=== PATIENT | male | born 1945 | race Caucasian/White ===

== ENCOUNTER 2018-08-06 10:14 | Inpatient (IN) | payer MEDICARE, BC ==
[~2018-08-06] VITALS: Ht 182.9 cm; Wt 113.4 kg
--- NOTE | ~2018-08-06 | MORECARE ---
CASE MANAGEMENT DISCHARGE SUMMARY PATIENT: LAUREN MONTERROSO UNIT: [id number] ADM DATE: 08/06/18 AGE: 72 : 46 SEX: M ROOM/BED: D.2225 AUTHOR: JODI,DOC PHYSICIAN: REFERRING PHYSICIAN: TARYN DORADO MD DATE OF SERVICE: 08/08/18 Discharge Plan Patient Name: LAUREN MONTERROSO Facility: [facility]:[place] : 1945 Planned Disposition: Home Anticipated Discharge Date: 08/08/18 Discharge Date: Expected LOS: 2 Initial Reviewer: [email or web address] Initial Review Date: 08/08/2018 Generated: 08/08/18 4:19 pm Comments DCP- Discharge Planning Updated by [email or web address]: Keke Schafer on 08/08/18 1:[address] Patient Name: LAUREN MONTERROSO Admission Status: ER Accout number: [id number] Admission Date: 08-06-2018 : 1945 Admission Diagnosis: Attending: TARYN DORADO Current LOS: 2 Anticipated DC Date: 08-08-2018 Planned Disposition: Home Primary Insurance: MEDICARE A & B Discharge Planning Comments: CM met with patient and his son to discuss discharge planning. He states he lives with his . States he is independent with all ADL's and IADL's. States he does use a cane for ambulation. He doesn't drive much any more, but his or son drives him where he needs to go. States he wears oxygen at night. States he checks his blood sugar daily. I discussed the availability of rehab, SNF and home health and he states he would like to go home with outpatient occupational therapy for his hand. He chooses [facility] for therapy. I spoke with Efren in PT and she will call him with appointment date and time. Order and facesheet faxed to PT department at [phone]. Beveling Machine Operator: Keke Schafer DCPIA - Discharge Planning Initial Assessment Updated by [email or web address]: Keke Schafer on 08/08/18 2:42 pm * Is the patient Alert and Oriented? Yes * How many steps to enter\exit or inside your home? 5/0 * PCP Dr. Karen * Pharmacy [facility] on [facility] and [place] * Preadmission Environment Home with Family * ADLs Partial Dependent * Partial ADLs (Assistance needed) Ambulation * Equipment Cane Glucometer Oxygen * List name and contact numbers for known caregivers / representatives who currently or will assist patient after discharge: Parish allen - [phone] Ghazala DAVIS - [phone] Selina - [email or web address] - [phone] * Verbal permission to speak to the caregivers and representatives has been obtained from the patient. Yes * Community resources currently utilized None * Please name any agencies selected above. DME company for oxygen is [employer] * Additional services required to return to the preadmission environment? Yes * Can the patient safely return to the preadmission environment? Yes * Has this patient been hospitalized within the prior 30 days at any hospital? No External Providers External Provider: [facility] Outpt PT Next Contact Date: Service Request Date: Service Type: Resolution: Reviewer: Comments: Last DP export: 08/08/18 1:51 p Patient Name: LAUREN MONTERROSO Page 18922 at 1519 All edits/amendments must be made on the electronic document DICTATION DATE: 08/08/181518 CORNCOB PIPES ASSEMBLER: COLEMAN 08/08/181518 RPT#: [id number] DC DATE: STATUS: ADM IN [facility] [address] [place] [address] END OF REPORT
--- NOTE | ~2018-08-06 | MORECARE ---
CASE MANAGEMENT DISCHARGE SUMMARY PATIENT: LAUREN MONTERROSO UNIT: [id number] ADM DATE: 08/06/18 AGE: 72 : 46 SEX: M ROOM/BED: D.2225 AUTHOR: JODIDOC PHYSICIAN: REFERRING PHYSICIAN: TARYN DORADO MD DATE OF SERVICE: 08/09/18 Discharge Plan Patient Name: LAUREN MONTERROSO Facility: [facility]:[place] : 1945 Planned Disposition: Home Anticipated Discharge Date: 08/08/18 Discharge Date: 08/08/2018 Expected LOS: 2 Initial Reviewer: [email or web address] Initial Review Date: 08/08/2018 Generated: 08/09/18 7:38 am Comments DCP- Discharge Planning Updated by [email or web address]: Keke Schafer on 08/08/18 3:[address] Patient Name: LAUREN MONTERROSO Encounter No: [id number] : 1945 Primary Insurance: MEDICARE A & B Anticipated DC Date: 08-08-2018 Planned Disposition: Home External Planned Provider: : DCP follow-up note: Patient and family in agreement with discharge plan. No changes to plan. Case management will follow and assist as needed. Keke Schafer DCP- Discharge Planning Updated by [email or web address]: Keke Schafer on 08/08/18 1:[address] Patient Name: LAUREN MONTERROSO Admission Status: ER Accout number: [id number] Admission Date: 08-06-2018 : 1945 Admission Diagnosis: Attending: TARYN DORADO Current LOS: 2 Anticipated DC Date: 08-08-2018 Planned Disposition: Home Primary Insurance: MEDICARE A & B Discharge Planning Comments: CM met with patient and his son to discuss discharge planning. He states he lives with his . States he is independent with all ADL's and IADL's. States he does use a cane for ambulation. He doesn't drive much any more, but his or son drives him where he needs to go. States he wears oxygen at night. States he checks his blood sugar daily. I discussed the availability of rehab, SNF and home health and he states he would like to go home with outpatient occupational therapy for his hand. He chooses [facility] for therapy. I spoke with Efren in PT and she will call him with appointment date and time. Order and facesheet faxed to PT department at [phone]. Aviation Electrical Technician: Keke Gilmar DCPIA - Discharge Planning Initial Assessment Updated by [email or web address]: Keke Gilmar on 08/08/18 2:42 pm * Is the patient Alert and Oriented? Yes * How many steps to enter\exit or inside your home? 5/0 * PCP Dr. Jones * Pharmacy [facility] on [facility] and [place] * Preadmission Environment Home with Family * ADLs Partial Dependent * Partial ADLs (Assistance needed) Ambulation * Equipment Cane Glucometer Oxygen * List name and contact numbers for known caregivers / representatives who currently or will assist patient after discharge: Parish allen - [phone] Ghazala DAVIS - [phone] Selina [facility] - [phone] * Verbal permission to speak to the caregivers and representatives has been obtained from the patient. Yes * Community resources currently utilized None * Please name any agencies selected above. DME company for oxygen is [employer] * Additional services required to return to the preadmission environment? Yes * Can the patient safely return to the preadmission environment? Yes * Has this patient been hospitalized within the prior 30 days at any hospital? No Last DP export: 08/08/18 3:41 p Patient Name: LAUREN MONTERROSO Page 46126 at 0638 All edits/amendments must be made on the electronic document DICTATION DATE: 08/09/18636 SUPERVISOR PHOSPHATIC FERTILIZER: COLEMAN 08/09/18636 RPT#: [id number] DC DATE:08/08/18 STATUS: DIS IN [facility] [address] [facility] [place] [address] END OF REPORT
--- NOTE | ~2018-08-06 | EC ---
PATIENT:LAUREN MONTERROSO DATE OF SERVICE: 08/06/18 SEX: M MEDICAL RECORD: [id number] DATE OF : [birth year] LOCATION:D.MS [facility] AGE OF PATIENT: 72 ADMISSION DATE: 08/06/18 REFERRING PHYSICIAN: INTERPRETING PHYSICIAN: DHRUV MATA MD ECHOCARDIOGRAM REPORT ECHO CHARGES 4 ECHO COMPLETE Date: 08/07/18 CLINICAL DIAGNOSIS: CVA ECHOCARDIOGRAPHIC MEASUREMENTS (adult normal given) AC root (d.<3.7cm) 3.3 cm LV Septum d (<1.2 cm> 1.4 cm Valve Excursion 1.6 cm LV Septum (systole) 1.5 cm Left Atria (s.<4.0cm> 3.9 cm LVPW d(<1.2cm) 1.5 cm RV (d.<2.3cm) 3.9 cm LVPW (sytole) 1.8 cm LV diastole(<5.6CM) 4.7 cm MV E-F(>70mm/sec) cm LV systole 3.5 cm LVOT Diameter 2.3 cm MV exc.(>10mm) cm Est.ejection fraction (50-75%) % DOPPLER: LVIT cm/sec A 100 cm/sec E 50.0 cm/sec LA cm/sec RVSP 19 mmHg LVOT 110 cm/sec AOP1/2T m/s Asc. Ao 135 cm/sec RVOT cm/sec RA cm/sec PA cm/sec AV Gradient Peak 7.32 mmHg AV Mean 4.2 mmHg AV Area 3.5 cm MV Gradient Peak 9.77 mmHg MV Mean 2.82 mmHg MV Area cm COMMENTS: Stem Cleaning Machine Feeder: Windy STEINBERG Drapery Maker: 1 Dr. Mata TAPE# PACS Pericardial Effusion N DATE OF SERVICE: 08/07/2018 PROCEDURE: Echocardiogram. FINDINGS: 1. Left ventricle chamber size is within normal limits. Left ventricular systolic function is normal. Overall ejection fraction estimated at 60%. 2. Left atrium, right atrium, and right ventricle chamber sizes are within normal limits. 3. Valvular structures have normal structure and motion. ECHOCARDIOGRAM REPORT [id number] LAUREN MONTERROSO 4. Doppler interrogation reveals no significant valvular insufficiency or stenosis. Pulmonary systolic pressure is normal estimated at 19 mmHg. 5. No evidence of pericardial effusion or left ventricular thrombus. TRANSINT:[id number] Voice Confirmation ID: [id number] DOCUMENT ID: [id number] DHRUV MATA MD at 1059 CC: [id number] DICTATION DATE: 08/07/18 1242 CHEMICAL SALES REPRESENTATIVE: 08/07/18 1247 DIS IN 08/08/18 [place] [id number] [place] [id number]
--- NOTE | ~2018-08-06 | MORECARE ---
CASE MANAGEMENT DISCHARGE SUMMARY PATIENT: LAUREN MONTERROSO UNIT: [id number] ADM DATE: 08/06/18 AGE: 72 : 46 SEX: M ROOM/BED: D.2225 AUTHOR: JODI,DOC PHYSICIAN: REFERRING PHYSICIAN: TARYN DORADO MD DATE OF SERVICE: 08/08/18 Discharge Plan Patient Name: LAUREN MONTERROSO Facility: [facility]:[place] : 1945 Planned Disposition: Home Anticipated Discharge Date: 08/08/18 Discharge Date: Expected LOS: 2 Initial Reviewer: [email or web address] Initial Review Date: 08/08/2018 Generated: 08/08/18 5:41 pm Comments DCP- Discharge Planning Updated by [email or web address]: Keke Mujicamarlene on 08/08/18 3:[address] Patient Name: LAUREN MONTERROSO Encounter No: [id number] : 1945 Primary Insurance: MEDICARE A & B Anticipated DC Date: 08-08-2018 Planned Disposition: Home External Planned Provider: : DCP follow-up note: Patient and family in agreement with discharge plan. No changes to plan. Case management will follow and assist as needed. Keke Schafer DCP- Discharge Planning Updated by [email or web address]: Keke Schafer on 08/08/18 1:[address] Patient Name: LAUREN MONTERROSO Admission Status: ER Accout number: [id number] Admission Date: 08-06-2018 : 1945 Admission Diagnosis: Attending: TARYN DORADO Current LOS: 2 Anticipated DC Date: 08-08-2018 Planned Disposition: Home Primary Insurance: MEDICARE A & B Discharge Planning Comments: CM met with patient and his son to discuss discharge planning. He states he lives with his . States he is independent with all ADL's and IADL's. States he does use a cane for ambulation. He doesn't drive much any more, but his or son drives him where he needs to go. States he wears oxygen at night. States he checks his blood sugar daily. I discussed the availability of rehab, SNF and home health and he states he would like to go home with outpatient occupational therapy for his hand. He chooses [facility] for therapy. I spoke with Efren in PT and she will call him with appointment date and time. Order and facesheet faxed to PT department at [phone]. Product Safety Consultant: Keke Mujicamarlene DCPIA - Discharge Planning Initial Assessment Updated by [email or web address]: Keke Mujicamarlene on 08/08/18 2:42 pm * Is the patient Alert and Oriented? Yes * How many steps to enter\exit or inside your home? 5/0 * PCP Dr. Jones * Pharmacy [facility] on [facility] and [place] * Preadmission Environment Home with Family * ADLs Partial Dependent * Partial ADLs (Assistance needed) Ambulation * Equipment Cane Glucometer Oxygen * List name and contact numbers for known caregivers / representatives who currently or will assist patient after discharge: Parish allen - [phone] Ghazala DAVIS - [phone] Selina - [facility] - [phone] * Verbal permission to speak to the caregivers and representatives has been obtained from the patient. Yes * Community resources currently utilized None * Please name any agencies selected above. DME company for oxygen is [employer] * Additional services required to return to the preadmission environment? Yes * Can the patient safely return to the preadmission environment? Yes * Has this patient been hospitalized within the prior 30 days at any hospital? No Last DP export: 08/08/18 2:19 p Patient Name: LAUREN MONTERROSO Page 04689 at 1641 All edits/amendments must be made on the electronic document DICTATION DATE: 08/08/181640 SOAP CHIPPER: COLEMAN 08/08/181640 RPT#: [id number] DC DATE: STATUS: ADM IN [facility] [address] [place] [address] END OF REPORT
--- NOTE | ~2018-08-06 | MORECARE ---
CASE MANAGEMENT DISCHARGE SUMMARY PATIENT: LAUREN MONTERROSO UNIT: [id number] ADM DATE: 08/06/18 AGE: 72 : 46 SEX: M ROOM/BED: D.2225 AUTHOR: JODI,DOC PHYSICIAN: REFERRING PHYSICIAN: TARYN DORADO MD DATE OF SERVICE: 08/08/18 Discharge Plan Patient Name: LAUREN MONTERROSO Facility: [facility]:[place] : 1945 Planned Disposition: Home Anticipated Discharge Date: 08/08/18 Discharge Date: Expected LOS: 2 Initial Reviewer: [email or web address] Initial Review Date: 08/08/2018 Generated: 08/08/18 3:51 pm Comments DCP- Discharge Planning Updated by [email or web address]: Keke Schafer on 08/08/18 1:[address] Patient Name: LAUREN MONTERROSO Admission Status: ER Accout number: [id number] Admission Date: 08-06-2018 : 1945 Admission Diagnosis: Attending: TARYN DORADO Current LOS: 2 Anticipated DC Date: 08-08-2018 Planned Disposition: Home Primary Insurance: MEDICARE A & B Discharge Planning Comments: CM met with patient and his son to discuss discharge planning. He states he lives with his . States he is independent with all ADL's and IADL's. States he does use a cane for ambulation. He doesn't drive much any more, but his or son drives him where he needs to go. States he wears oxygen at night. States he checks his blood sugar daily. I discussed the availability of rehab, SNF and home health and he states he would like to go home with outpatient occupational therapy for his hand. He chooses [facility] for therapy. I spoke with Efren in PT and she will call him with appointment date and time. Order and facesheet faxed to PT department at [phone]. Dairy Scientist: Keke Schafer DCPIA - Discharge Planning Initial Assessment Updated by [email or web address]: Keke Schafer on 08/08/18 2:42 pm * Is the patient Alert and Oriented? Yes * How many steps to enter\exit or inside your home? 5/0 * PCP Dr. Karen * Pharmacy [facility] on [facility] and [place] * Preadmission Environment Home with Family * ADLs Partial Dependent * Partial ADLs (Assistance needed) Ambulation * Equipment Cane Glucometer Oxygen * List name and contact numbers for known caregivers / representatives who currently or will assist patient after discharge: Parish allen - [phone] Ghazala DAVIS - [phone] Selina - [email or web address] - [phone] * Verbal permission to speak to the caregivers and representatives has been obtained from the patient. Yes * Community resources currently utilized None * Please name any agencies selected above. DME company for oxygen is [employer] * Additional services required to return to the preadmission environment? Yes * Can the patient safely return to the preadmission environment? Yes * Has this patient been hospitalized within the prior 30 days at any hospital? No Last DP export: 08/08/18 1:42 p Patient Name: LAUREN MONTERROSO Page 80051 at 1451 All edits/amendments must be made on the electronic document DICTATION DATE: 08/08/181450 PRECAST CONCRETE PRODUCTS INSTALLER: COLEMAN 08/08/18 145 RPT#: [id number] DC DATE: STATUS: ADM IN [facility] [address] [place] [address] END OF REPORT
--- NOTE | ~2018-08-06 | MORECARE ---
CASE MANAGEMENT DISCHARGE SUMMARY PATIENT: LAUREN MONTERROSO UNIT: [id number] ADM DATE: 08/06/18 AGE: 72 : 46 SEX: M ROOM/BED: D.2225 AUTHOR: MILAGROS ZAPATA PHYSICIAN: REFERRING PHYSICIAN: TARYN DORADO MD DATE OF SERVICE: 08/08/18 Discharge Plan Patient Name: LAUREN MONTERROSO Facility: [facility]:[place] : 1945 Planned Disposition: Home Anticipated Discharge Date: 08/08/18 Discharge Date: Expected LOS: 2 Initial Reviewer: [email or web address] Initial Review Date: 08/08/2018 Generated: 08/08/18 3:42 pm DCPIA - Discharge Planning Initial Assessment Updated by [email or web address]: Keke Schafer on 08/08/18 2:42 pm * Is the patient Alert and Oriented? Yes * How many steps to enter\exit or inside your home? 5/0 * PCP Dr. Jones * [facility] * Preadmission Environment Home with Family * ADLs Partial Dependent * Partial ADLs (Assistance needed) Ambulation * Equipment Cane Glucometer Oxygen * List name and contact numbers for known caregivers / representatives who currently or will assist patient after discharge: Parish allen - [phone] Ghazala DAVIS - [phone] Selina [facility] - [phone] * Verbal permission to speak to the caregivers and representatives has been obtained from the patient. Yes * Community resources currently utilized None * Please name any agencies selected above. DME company for oxygen is [employer] * Additional services required to return to the preadmission environment? Yes * Can the patient safely return to the preadmission environment? Yes * Has this patient been hospitalized within the prior 30 days at any hospital? No External Providers External Provider: OTHER-OTHER Next Contact Date: Service Request Date: Service Type: Resolution: Reviewer: Comments: Patient Name: LAUREN MONTERROSO Page 09881 at 1442 All edits/amendments must be made on the electronic document DICTATION DATE: 08/08/18 1442 MANAGER TRANSFUSION: COLEMAN 08/08/18 1442 RPT#: [id number] DC DATE: STATUS: ADM IN [facility] [address] [place] [address] END OF REPORT
[2018-08-06 10:53] LABS: BASOPHILS 0.5 % (0-2); EOSINOPHILS 5.8 % (0-7); HEMATOCRIT 44.6 % (42.0-54.0); HEMOGLOBIN 15.1 g/dL (13.5-17.5); IMMATURE GRANULOCYTES 0.1 % (0-5); LYMPHOCYTES 22.7 % (15-50); MCH 31.7 pg (26.0-34.0); MCHC 33.9 g/dL (31.0-37.0); MCV 93.7 fL (80.0-100.0); MEAN PLATELET VOLUME 10.5 fL (7.4-10.4); MONOCYTES 6.4 % (2-11); NEUTROPHILS 64.5 % (40-80); RBC 4.76 10x6/uL (4.20-6.10); RDW 13.6 % (11.5-14.5); WBC 8.8 10x3/uL (4.8-10.8)
[2018-08-06 10:54] LABS: PLATELET COUNT 232 10x3/uL (130-400)
[2018-08-06 10:59] LABS: INR 0.91 (0.85-1.17); PROTIME 11.8 SECONDS (11.6-15.0)
[2018-08-06 11:00] LABS: APTT 29.4 SECONDS (22.8-39.4)
[2018-08-06 11:09] LABS: ALBUMIN 3.5 g/dL (3.4-5.0); ALKALINE PHOSPHATASE 121 U/L (46-116); ALT (SGPT) 28 U/L (10-68); BILIRUBIN - TOTAL 0.44 mg/dL (0.2-1.3); CALC OSMOLALITY 290 mosm/kg (275-300); CALCIUM 9.2 mg/dL (8.5-10.1); CARBON DIOXIDE 26.9 mmol/L (21.0-32.0); CHLORIDE - SERUM 106 mmol/L (98-107); POTASSIUM - SERUM 4.4 mmol/L (3.5-5.1); PROTEIN - SERUM 7.3 g/dL (6.4-8.2); SODIUM 142 mmol/L (136-145); UREA NITROGEN 12 mg/dL (7-18); eGFR NON AFRICAN AMERICAN 78 mL/min (90-120)
[2018-08-06 11:11] LABS: GLUCOSE 243 mg/dL (74-106)
[2018-08-06 11:15] VITALS: BP 144/84
[2018-08-06 11:24] LABS: CKMB 1.3 U/L (0.0-3.6); CREATINE KINASE 54 UL (21-232); MAGNESIUM - SERUM 1.7 mg/dL (1.8-2.4); THYROID STIMULATING HORMONE 6.19 uIU/mL (0.36-3.74)
[2018-08-06 11:25] LABS: TROPONIN-I < 0.017 ng/mL (0.000-0.060)
[2018-08-06 12:15] VITALS: BP 136/64
[2018-08-06 13:15] VITALS: BP 157/78
[2018-08-06 14:15] VITALS: BP 140/61
[2018-08-06] MEDS ORDERED: LISINOPRIL5 MG PO (17:20)
[2018-08-06] MEDS ORDERED: NORVASC10 MG PO (17:21)
[2018-08-06] MEDS ORDERED: NAMENDA5 MG PO (17:21)
[2018-08-06] MEDS ORDERED: INDERAL 40 MG T40 MG PO (17:22)
[2018-08-06] MEDS ORDERED: GLUCOPHAGE1000 MG PO (17:23)
[2018-08-06] MEDS ORDERED: GLIPIZIDE10 MG PO (17:23)
[2018-08-06] MEDS ORDERED: FLOMAX0.4 MG PO (17:24)
[2018-08-06] MEDS ORDERED: NEURONTIN 300300 MG PO (17:24)
[2018-08-06] MEDS ORDERED: REMERON15 MG PO (17:25)
[2018-08-06] MEDS ORDERED: TRAZODONE HCL150 MG PO (17:25)
[2018-08-06] MEDS ORDERED: ZOCOR40 MG PO (17:26)
[2018-08-06 17:38] VITALS: BP 150/95; BMI 34.0
[2018-08-06] MEDS ORDERED: lantus SC (17:38)
[2018-08-06 20:00] VITALS: BP 144/74
[2018-08-07 06:26] LABS: BASOPHILS 0.3 % (0-2); EOSINOPHILS 5.5 % (0-7); HEMATOCRIT 41.1 % (42.0-54.0); HEMOGLOBIN 14.3 g/dL (13.5-17.5); IMMATURE GRANULOCYTES 0.2 % (0-5); LYMPHOCYTES 21.1 % (15-50); MCH 32.5 pg (26.0-34.0); MCHC 34.8 g/dL (31.0-37.0); MCV 93.4 fL (80.0-100.0); MEAN PLATELET VOLUME 10.8 fL (7.4-10.4); MONOCYTES 6.1 % (2-11); NEUTROPHILS 66.8 % (40-80); PLATELET COUNT 233 10x3/uL (130-400); RDW 13.8 % (11.5-14.5); WBC 8.6 10x3/uL (4.8-10.8)
[2018-08-07 06:57] LABS: ALBUMIN 3.4 g/dL (3.4-5.0); ALKALINE PHOSPHATASE 113 U/L (46-116); ALT (SGPT) 25 U/L (10-68); BILIRUBIN - TOTAL 0.61 mg/dL (0.2-1.3); CALC OSMOLALITY 284 mosm/kg (275-300); CALCIUM 8.7 mg/dL (8.5-10.1); CARBON DIOXIDE 26.8 mmol/L (21.0-32.0); CHLORIDE - SERUM 104 mmol/L (98-107); CHOL - HDL RATIO 4.2 ratio (2.3-4.9); CHOLESTEROL, TOTAL 155 mg/dL (0-200); CREATININE - SERUM 0.9 mg/dL (0.6-1.3); GLUCOSE 232 mg/dL (74-106); HDL CHOLESTEROL 37 mg/dL (32-96); LDL CHOLESTEROL 96 mg/dL (0-100); LDL-HDL RATIO 2.6 ratio (1.5-3.5); MAGNESIUM - SERUM 2.1 mg/dL (1.8-2.4); POTASSIUM - SERUM 4.4 mmol/L (3.5-5.1); PROTEIN - SERUM 6.5 g/dL (6.4-8.2); SODIUM 140 mmol/L (136-145); TRIGLYCERIDE 110 mg/dL (30-200); UREA NITROGEN 10 mg/dL (7-18); eGFR NON AFRICAN AMERICAN 88 mL/min (90-120)
[2018-08-07 08:19] VITALS: BP 154/75
[2018-08-07 13:38] VITALS: Ht 182.9 cm; Wt 113.4 kg
[2018-08-07 16:16] VITALS: BP 136/68
[2018-08-07 19:41] LABS: APPEARANCE CLEAR (CLEAR); BILIRUBIN NEGATIVE (NEGATIVE); COLOR YELLOW (YELLOW); GLUCOSE 1000 mg/dL (NEGATIVE); KETONE NEGATIVE (NEGATIVE); NITRITE NEGATIVE (NEGATIVE); PROTEIN NEGATIVE (NEGATIVE); UROBILINOGEN NORMAL (NORMAL)
[2018-08-07 20:00] VITALS: BP 121/69
[2018-08-08] VITALS: BP 127/69
[2018-08-08 04:00] VITALS: BP 137/60
[2018-08-08 06:10] LABS: BASOPHILS 0.8 % (0-2); EOSINOPHILS 4.8 % (0-7); HEMATOCRIT 40.7 % (42.0-54.0); HEMOGLOBIN 13.6 g/dL (13.5-17.5); IMMATURE GRANULOCYTES 0.3 % (0-5); LYMPHOCYTES 24.9 % (15-50); MCH 31.5 pg (26.0-34.0); MCHC 33.4 g/dL (31.0-37.0); MCV 94.2 fL (80.0-100.0); MEAN PLATELET VOLUME 10.9 fL (7.4-10.4); MONOCYTES 7.4 % (2-11); NEUTROPHILS 61.8 % (40-80); PLATELET COUNT 227 10x3/uL (130-400); RBC 4.32 10x6/uL (4.20-6.10); RDW 13.8 % (11.5-14.5); WBC 7.6 10x3/uL (4.8-10.8)
[2018-08-08 06:24] LABS: CALC OSMOLALITY 287 mosm/kg (275-300); CARBON DIOXIDE 26.9 mmol/L (21.0-32.0); CHLORIDE - SERUM 106 mmol/L (98-107); GLUCOSE 217 mg/dL (74-106); POTASSIUM - SERUM 4.4 mmol/L (3.5-5.1); SODIUM 141 mmol/L (136-145); UREA NITROGEN 12 mg/dL (7-18); eGFR NON AFRICAN AMERICAN 78 mL/min (90-120)
[2018-08-08 09:57] VITALS: BP 141/60
[2018-08-08 12:48] VITALS: BP 139/60
[2018-08-08] MEDS ORDERED: ASPIRIN325 MG PO (16:39)
== END 2018-08-08 18:35 | disposition home or self-care (01) | DRG 65 ==
LOC: D.ER 10:14 → D.EDHOLD 15:06 → D.MS 15:06
PROVIDERS: Family Medicine; Internal Medicine Nephrology
DX: I63.9 Cerebral infarction, unspecified (principal); G45.9 Transient cerebral ischemic attack, unspecified; G81.91 Hemiplegia, unspecified affecting right dominant side; M62.81 Muscle weakness (generalized); E11.9 Type 2 diabetes mellitus without complications; F41.8 Other specified anxiety disorders; I10 Essential (primary) hypertension; E78.5 Hyperlipidemia, unspecified; G25.0 Essential tremor; G47.33 Obstructive sleep apnea (adult) (pediatric); J45.909 Unspecified asthma, uncomplicated; E83.42 Hypomagnesemia; E03.9 Hypothyroidism, unspecified